=== PATIENT | female | born 1980 | race African-American/Black ===

== ENCOUNTER 2016-09-08 13:13 | Emergency (ER) | payer OTHER ==
[2016-09-08 13:25] VITALS: BP 129/81
--- NOTE | 2016-09-08 14:10 | ER Document Report ---
ED Medical Screen (RME) - General Stated Complaint: BODY ACHES,HOT AND COLD FLASHES Time seen by provider: 14:08 Mode of Arrival: Ambulatory Information source: Patient Notes: 35-year-old female presents to ED for bodyaches and hot and cold flashes eyes going in and out of focus and feeling nauseated and dizzy since yesterday. Last menstrual period was started today. I have greeted and performed a rapid initial assessment of this patient. A comprehensive ED assessment and evaluation of the patient, analysis of test results and completion of medical decision making process will be conducted by an additional ED providers. TRAVEL OUTSIDE OF THE [place] IN LAST 30 DAYS: No - Related Data Allergies/Adverse Reactions: No Known Allergies Allergy (Unverified 01/24/13 23:12) Past Medical History - Past Medical History Cardiac Medical History: Denies: Hx Coronary Artery Disease, Hx Hypertension Pulmonary Medical History: Reports: Hx Bronchitis Denies: Hx Asthma Endocrine Medical History: Denies: Hx Diabetes Mellitus Type 1, Hx Diabetes Mellitus Type 2 Past Surgical History: Reports: Hx Tubal Ligation - Immunizations Immunizations up to date: No Hx Diphtheria, Pertussis, Tetanus Vaccination: No Physical Exam - Vital signs Vitals: Temp Pulse Resp BP Pulse Ox 98.7 F 87 16 129/81 H 99 09/08/16 13:22 09/08/16 13:22 09/08/16 13:22 09/08/16 13:22 09/08/16 13:22 Course - Vital Signs Vital signs: Temp Pulse Resp BP Pulse Ox 98.7 F 87 16 129/81 H 99 09/08/16 13:22 09/08/16 13:22 09/08/16 13:22 09/08/16 13:22 09/08/16 13:22
[2016-09-08 14:43] LABS: ABSOLUTE EOSINOPHILS # (AUTO) 0.3 10^3/uL (0.0-0.6); ABSOLUTE LYMPHOCYTES (AUTO) 2.6 10^3/uL (0.5-4.7); ABSOLUTE MONOCYTES (AUTO) 0.6 10^3/uL (0.1-1.4); ABSOLUTE NEUT (AUTO) 4.8 10^3/uL (1.7-8.2); BASOPHILS % (AUTO) 0.6 % (0-2); EOSINOPHILS % (AUTO) 3.6 % (0-6); HEMATOCRIT 42.8 % (36.0-47.0); HEMOGLOBIN 14.4 g/dL (12.0-15.5); HGB HCT DIFFERENCE 0.4; MEAN CORPUSCULAR HEMOGLOBIN 30.8 pg (27.0-33.4); MEAN CORPUSCULAR HGB CONC 33.7 g/dL (32.0-36.0); MEAN CORPUSCULAR VOLUME 92 fl (80-97); MONOCYTES % (AUTO) 6.8 % (3-13); RED BLOOD COUNT 4.67 10^6/uL (3.72-5.28); RED CELL DISTRIBUTION WIDTH 13.5 % (11.5-14.0); WHITE BLOOD COUNT 8.3 10^3/uL (4.0-10.5)
[2016-09-08 15:02] LABS: ALANINE AMINOTRANSFERASE 23 U/L (9-52); ALBUMIN 3.9 g/dL (3.5-5.0); ALKALINE PHOSPHATASE 72 U/L (38-126); ANION GAP 6 (5-19); ASPARTATE AMINO TRANSFERASE 15 U/L (14-36); BILIRUBIN,TOTAL 0.3 mg/dL (0.2-1.3); BLOOD UREA NITROGEN 10 mg/dL (7-20); CALCIUM 9.8 mg/dL (8.4-10.2); CARBON DIOXIDE 27 mmol/L (22-30); CHLORIDE 106 mmol/L (98-107); CREATININE RESULT 0.83 mg/dL (0.52-1.25); GLUCOSE 82 mg/dL (75-110); POTASSIUM 4.4 mmol/L (3.6-5.0); SODIUM 139.2 mmol/L (137-145); TOTAL PROTEIN 6.7 g/dL (6.3-8.2)
[2016-09-08 15:07] LABS: APPEARANCE,URINE CLEAR; BILIRUBIN,URINE NEGATIVE (NEGATIVE); GLUCOSE, URINE NEGATIVE (NEGATIVE); KETONES,URINE NEGATIVE (NEGATIVE); LEUKOCYTE ESTERASE,URINE TRACE (NEGATIVE); NITRITE,URINE NEGATIVE (NEGATIVE); PROTEIN,URINE NEGATIVE (NEGATIVE); URINE SPECIFIC GRAVITY 1.003; UROBILINOGEN,URINE NEGATIVE mg/dL (<2.0)
--- NOTE | 2016-09-08 16:21 | ER Document Report ---
ED General - General Chief Complaint: Dizziness Stated Complaint: BODY ACHES,HOT AND COLD FLASHES Time seen by provider: 16:17 Mode of Arrival: Ambulatory Information source: Patient Notes: 35-year-old female who complains about 3 day history of nausea nonproductive cough nasal congestion diffuse body aches occasional dizziness with standing. To this examiner she denies focal weakness to any extremity, syncope, visual disturbances, chest pain, abdominal pain, or dysuria. Physical Exam: General: Alert, appears well. HEENT: Normocephalic. Atraumatic. PERRLA. Extraocular movements intact. Discs sharp no papilledema sclerae anicteric tympanic membranes clear canals with moderate cerumen oropharynx clear mucous membranes moist Neck: Supple. Non-tender. No adenopathy no JVD Respiratory: No respiratory distress. Clear and equal breath sounds bilaterally. Cardiovascular: Regular rate and rhythm. Abdominal: Normal Inspection. Soft, non-tender. No distension. Normal Bowel Sounds. Back: Non-tender. No deformity or step off. Good range of motion all extremities without discomfort Neurological: Cranial nerves III-XII grossly intact bilaterally. Strength 5/5 throughout. Sensation intact to light touch. Normal cognition. AAOx4. Normal speech. Cerebellar function intact by finger-nose test bilaterally Psychological: Normal affect. Normal Mood. Skin: Warm. Dry. Normal color. TRAVEL OUTSIDE OF THE [place] IN LAST 30 DAYS: No - Related Data Allergies/Adverse Reactions: No Known Allergies Allergy (Verified 09/08/16 14:11) Past Medical History - General Information source: Patient - Social History Smoking Status: Never Smoker Chew tobacco use (# tins/day): No Family History: CAD, CVA, DM, Hyperlipidemia, Hypertension, Malignancy Patient has suicidal ideation: No Patient has homicidal ideation: No - Past Medical History Cardiac Medical History: Denies: Hx Coronary Artery Disease, Hx Hypertension Pulmonary Medical History: Reports: Hx Bronchitis Denies: Hx Asthma Endocrine Medical History: Denies: Hx Diabetes Mellitus Type 1, Hx Diabetes Mellitus Type 2 Renal/ Medical History: Denies: Hx Peritoneal Dialysis Past Surgical History: Reports: Hx Tubal Ligation - Immunizations Immunizations up to date: No Hx Diphtheria, Pertussis, Tetanus Vaccination: No Hx Pneumococcal Vaccination: 04/02/09 Review of Systems - Review of Systems Constitutional: denies: Chills, Fever EENT: Throat pain. denies: Ear pain Cardiovascular: See HPI. denies: Chest pain Respiratory: See HPI Gastrointestinal: denies: Diarrhea Genitourinary: denies: Burning, Dysuria Musculoskeletal: denies: Back pain Skin: denies: Rash Hematologic/Lymphatic: denies: Swollen glands Neurological/Psychological: denies: Numbness Physical Exam - Vital signs Vitals: Temp Pulse Resp BP Pulse Ox 98.7 F 87 16 129/81 H 99 09/08/16 13:22 09/08/16 13:22 09/08/16 13:22 09/08/16 13:22 09/08/16 13:22 Course - Re-evaluation Re-evalutation: 09/08/16 16:19 Patient 5 white cells in urine but no urinary symptoms and I doubt this represents urinary tract infection. Patient's symptoms consistent with viral syndrome she is counseled to use [id number] regimens for this and will provide with outpatient physician follow-up as she has no local doctor - Vital Signs Vital signs: Temp Pulse Resp BP Pulse Ox 98.7 F 87 16 129/81 H 99 09/08/16 13:22 09/08/16 13:22 09/08/16 13:22 09/08/16 13:22 09/08/16 13:22 - Laboratory Result Diagrams: 09/08/16 14:15 09/08/16 14:15 Laboratory results interpreted by me: 09/08/16 14:20 Urine Blood MODERATE H Ur Leukocyte Esterase TRACE H Discharge - Discharge Clinical Impression: Viral syndrome Condition: Stable Disposition: HOME, SELF-CARE Instructions: Viral Syndrome ([facility]) Forms: Return to Work Referrals: [facility] [Provider Group] - Follow up as needed
== END 2016-09-08 17:00 | disposition home or self-care (01) ==
LOC: ER 13:13
DX: B34.9 Viral infection, unspecified (principal); R11.0 Nausea; R05 Cough; R09.81 Nasal congestion; R42 Dizziness and giddiness; R07.0 Pain in throat
CPT/HCPCS: 36415; 80053; 81001; 84703; 85025; 99284

== ENCOUNTER 2017-10-14 16:33 | Emergency (ER) | payer SELFPAY ==
--- NOTE | 2017-10-14 18:21 | ER Document Report ---
ED General - General Mode of Arrival: Ambulatory Information source: Patient TRAVEL OUTSIDE OF THE [place] IN LAST 30 DAYS: No - General Chief Complaint: Numbness of Arm Stated Complaint: LEFT ARM AND HAND TINGLING Time Seen by Provider: 10/14/17 18:15 Notes: 36 y.o female presents to the ED with numbness and tingling to her LUE. She reports that she was at work and her LT hand started to tingle and progressing up her arm. She states that at first she ignored it because it has been happening intermittently since April last year. She states that when it happens it lasts for about an hour. She denies any pain at onset but admits to numbness. Pt also states that her right hand was feeling as if it was swelling but has since relieved. (TASHA YEN) - Related Data Allergies/Adverse Reactions: No Known Allergies Allergy (Verified 10/14/17 16:35) Past Medical History - General Information source: Patient - Social History Smoking Status: Current Every Day Smoker - 2 packs per week Chew tobacco use (# tins/day): No Smoking Education Provided: Yes Frequency of alcohol use: Rare Drug Abuse: None Lives with: Family Family History: CAD, CVA, DM, Hyperlipidemia, Hypertension, Malignancy Patient has suicidal ideation: No Patient has homicidal ideation: No - Past Medical History Cardiac Medical History: Denies: Hx Coronary Artery Disease, Hx Hypertension Pulmonary Medical History: Reports: Hx Bronchitis Denies: Hx Asthma Endocrine Medical History: Denies: Hx Diabetes Mellitus Type 1, Hx Diabetes Mellitus Type 2 Renal/ Medical History: Denies: Hx Peritoneal Dialysis Past Surgical History: Reports: Hx Tubal Ligation - Immunizations Immunizations up to date: No Hx Diphtheria, Pertussis, Tetanus Vaccination: No Hx Pneumococcal Vaccination: 04/02/09 Review of Systems - Review of Systems Constitutional: No symptoms reported EENT: No symptoms reported Cardiovascular: No symptoms reported Respiratory: No symptoms reported Gastrointestinal: No symptoms reported Genitourinary: No symptoms reported Female Genitourinary: No symptoms reported Musculoskeletal: See HPI, Other - RT hand swelling sensation.. denies: Muscle pain - denies any pain with tingling onset Skin: No symptoms reported Hematologic/Lymphatic: No symptoms reported Neurological/Psychological: See HPI, Numbness - LUE, Tingling - LUE -: Yes All other systems reviewed and negative Physical Exam - Vital signs Vitals: Temp Pulse Resp BP Pulse Ox 98.7 F 96 16 134/81 H 98 10/14/17 16:40 10/14/17 16:40 10/14/17 16:40 10/14/17 16:40 10/14/17 16:40 - Notes Notes: General: Alert, appears well. HEENT: Normocephalic. Atraumatic. PERRL. Extraocular movements intact. Oropharynx clear. Neck: Supple. Non-tender. Respiratory: No respiratory distress. Clear and equal breath sounds bilaterally. Cardiovascular: Regular rate and rhythm. Abdominal: Morbidly obese, soft , non-tender. No distension. Normal Bowel Sounds. Back: Non-tender. No deformity or step off. Extremities: Moves all four extremities. Upper extremities: Normal ROM. LT trapezius muscle very tender to palpation. RT hand unremarkable. Lower extremities: Normal inspection. No edema. Normal ROM. Neurological: Normal cognition. AAOx4. Normal speech. Psychological: Normal affect. Normal Mood. Skin: Warm. Dry. Normal color. (TASHA YEN) - Vital Signs Vital signs: Temp Pulse Resp BP Pulse Ox 98.7 F 96 16 134/81 H 98 10/14/17 16:40 10/14/17 16:40 10/14/17 16:40 10/14/17 16:40 10/14/17 16:40 Discharge - Discharge Clinical Impression: Numbness and tingling in left arm Condition: Stable Disposition: HOME, SELF-CARE Additional Instructions: The intermittent numbness you are experiencing going down the dorsal lateral left arm and forearm to your hand is probably related to chronic tension in your left trapezius muscle as we demonstrated during her physical exam. Try taking Tylenol every 4 hours and Motrin 800mg every 8 hours for the next several days. Try moist heat such as a warm wet towel or a wet towel under heating pad to the left trapezius muscle where you were tender during the exam. Follow-up with a local medical doctor if not improving. RETURN TO THE EMERGENCY ROOM IF ANY NEW OR WORSENING SYMPTOMS. Scribe Attestation: 10/14/17 18:36 I personally performed the services described in the documentation, reviewed and edited the documentation which was dictated to the scribe in my presence, and it accurately records my words and actions. (JERILYN ESTRADA) Scribe Documentation - Scribe Written by Lizeth:: Lizeth Barrientos 10/14/[id number] acting as scribe for :: Rani
[2017-10-14 18:55] VITALS: BP 114/80
== END 2017-10-14 18:54 | disposition home or self-care (01) ==
LOC: ER 16:33
DX: R20.0 Anesthesia of skin (principal); R20.2 Paresthesia of skin; F17.210 Nicotine dependence, cigarettes, uncomplicated; Z98.51 Tubal ligation status
CPT/HCPCS: 99283

== ENCOUNTER 2018-12-12 18:30 | Emergency (ER) | payer SELFPAY ==
[2018-12-12 18:38] VITALS: BP 144/80
[2018-12-12] MEDS ORDERED: IBUPROFEN 600 MG TABLET PO ONE (20:40)
[2018-12-12] MEDS ORDERED: ACETAMINOPHEN 325 MG TABLET PO ONE (20:40)
--- NOTE | 2018-12-12 20:42 | ER Document Report ---
HPI - HPI Time Seen by Provider: 12/12/18 20:30 Pain Level: 3 Context: Patient is a 38-year-old female who presents emerged department with a chief complaint of a sore throat and feeling like she is underwater with right ear pain rating today. Her daughter was diagnosed with strep on Tuesday. She also works in a [employer] with multiple people around. She states that she just generally does not feel well. Denies any past medical history. - EENT EENT: REPORTS: Sore Throat - dghtr has strep - RESPIRATORY Respiratory: DENIES: Trouble Breathing, Coughing - GASTROINTESTINAL Gastrointestinal: DENIES: Abdominal Pain - REPRODUCTIVE Reproductive: DENIES: : - MUSCULOSKELETAL Musculoskeletal: DENIES: Extremity pain - DERM Skin Color: Normal Skin Problems: None Past Medical History - Social History Smoking Status: Never Smoker Chew tobacco use (# tins/day): No Frequency of alcohol use: None Drug Abuse: None Family History: CAD, CVA, DM, Hyperlipidemia, Hypertension, Malignancy Patient has suicidal ideation: No Patient has homicidal ideation: No - Past Medical History Cardiac Medical History: Denies: Hx Coronary Artery Disease, Hx Hypertension Pulmonary Medical History: Reports: Hx Bronchitis Denies: Hx Asthma Endocrine Medical History: Denies: Hx Diabetes Mellitus Type 1, Hx Diabetes Mellitus Type 2 Renal/ Medical History: Denies: Hx Peritoneal Dialysis Past Surgical History: Reports: Hx Tubal Ligation - Immunizations Immunizations up to date: No Hx Diphtheria, Pertussis, Tetanus Vaccination: No Hx Pneumococcal Vaccination: 04/02/09 Vertical Provider Document - CONSTITUTIONAL Agree With Documented VS: Yes Exam Limitations: No Limitations General Appearance: No Apparent Distress - INFECTION CONTROL TRAVEL OUTSIDE OF THE [place] IN LAST 30 DAYS: No - HEENT HEENT: Atraumatic, Normocephalic, PERRLA, Pharyngeal Exudate, Pharyngeal Tenderness, Pharyngeal Erythema. negative: Conjuctival Injection Notes: Cerumen impaction in both ears. - RESPIRATORY Respiratory: Breath Sounds Normal, No Respiratory Distress - CARDIOVASCULAR Cardiovascular: Regular Rate, Regular Rhythm Pulses: Normal: Radial - MUSCULOSKELETAL/EXTREMETIES Musculoskeletal/Extremeties: FROM - NEURO Level of Consciousness: Awake, Alert, Appropriate Motor/Sensory: No Motor Deficit, No Sensory Deficit - DERM Integumentary: Warm, Dry, No Rash Course - Re-evaluation Re-evalutation: 12/12/18 20:42 Due to the patient being in close quarters with her daughter who was diagnosed with strep, she will be started on Augmentin. Unfortunately due to her cerumen, I was unable to visualize her tympanic membrane. The Augmentin will cover a pos sible infection since she is complaining of right ear pain also. She does have tonsillar exudate. She will receive ibuprofen and Tylenol. I do not suspect Uche's angina, peritonsillar abscess, or any other life-threatening etiology at this time. Airway is patent. Follow-up precautions were given. Verbal discharge instructions were given to the patient. They verbalized understanding. They are stable for discharge. - Vital Signs Vital signs: Temp Pulse Resp BP Pulse Ox 98.5 F 110 H 18 144/80 H 97 12/12/18 18:37 12/12/18 18:37 12/12/18 18:37 12/12/18 18:37 12/12/18 18:37 Discharge - Discharge Clinical Impression: Tonsillar exudate Condition: Stable Disposition: HOME, SELF-CARE Additional Instructions: You were seen today in the emergency department for sore throat. You are being treated with antibiotics. Please follow-up with the 2 clinics below as needed. If you have worsening symptoms, please return to the emergency department. You are also being provided eardrops. Please use as needed and as directed for the buildup of earwax in your ears. Prescriptions: Amox Tr/Potassium Clavulanate [Augmentin 875-125 Tablet] 1 tab PO BID 10 Days #20 tablet Carbamide Peroxide [Debrox 6.5 % Otic Drops 15 ml] 10 drop OT ASDIR PRN #1 bottle PRN Reason: Forms: Return to Work
== END 2018-12-12 20:45 | disposition home or self-care (01) ==
LOC: ER 18:30
DX: J02.9 Acute pharyngitis, unspecified (principal); H92.01 Otalgia, right ear; Z98.51 Tubal ligation status
CPT/HCPCS: 87070; 87880; 99283

== ENCOUNTER 2018-12-25 13:43 | Emergency (ER) | payer SELFPAY ==
--- NOTE | 2018-12-25 14:41 | ER Document Report ---
HPI - HPI Patient complains to provider of: clogged ears Time Seen by Provider: 12/25/18 14:37 Onset: Other - tuesday Onset/Duration: Persistent Severity: Severe Pain Level: 4 Context: Patient presents emergency department with reports of clogged ear since Tuesday. 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 Denies other symptoms such as fever vomiting diarrhea. Denies pain. Denies dizziness, does report that the outside of her ear hurts because she has been messing with her ear,trying to get the ears unclogged. Associated Symptoms: None Exacerbated by: Denies Relieved by: Denies Similar symptoms previously: No Recently seen / treated by doctor: No - EENT EENT: REPORTS: Ear Pain - REPRODUCTIVE Reproductive: DENIES: : Past Medical History - General Information source: Patient Last Menstrual Period: 12/16/18 - Social History Smoking Status: Current Every Day Smoker Cigarette use (# per day): Yes Frequency of alcohol use: Rare Drug Abuse: None Occupation: call center Family History: CAD, CVA, DM, Hyperlipidemia, Hypertension, Malignancy Patient has suicidal ideation: No Patient has homicidal ideation: No - Past Medical History Cardiac Medical History: Denies: Hx Coronary Artery Disease, Hx Hypertension Pulmonary Medical History: Reports: Hx Bronchitis Denies: Hx Asthma Endocrine Medical History: Denies: Hx Diabetes Mellitus Type 1, Hx Diabetes Mellitus Type 2 Renal/ Medical History: Denies: Hx Peritoneal Dialysis Past Surgical History: Reports: Hx Tubal Ligation - Immunizations Immunizations up to date: No Hx Diphtheria, Pertussis, Tetanus Vaccination: No Hx Pneumococcal Vaccination: 04/02/09 Vertical Provider Document - CONSTITUTIONAL Agree With Documented VS: Yes Exam Limitations: No Limitations General Appearance: WD/WN, No Apparent Distress - INFECTION CONTROL TRAVEL OUTSIDE OF THE [place] IN LAST 30 DAYS: No - HEENT HEENT: Atraumatic, Normocephalic Notes: Bilateral ears with wax buildup unable to visualize TM. No erythema swelling to outer ear. - NECK Neck: Supple - RESPIRATORY Respiratory: No Respiratory Distress - MUSCULOSKELETAL/EXTREMETIES Musculoskeletal/Extremeties: MICHOACANO ARRIETA - NEURO Level of Consciousness: Awake, Alert, Appropriate Motor/Sensory: No Motor Deficit - DERM Integumentary: Warm, Dry Course - Re-evaluation Re-evalutation: 12/25/18 15:24 Ears irrigated by Eliud GONZALEZ good results. Pt reports she can hear and feels much better, ears are cleaned out some erythema to left TM. Right TM clear Patient instructed to not use Q-tips. Instructed to follow-up with ENT for recheck. She verbalized understanding to all instructions Dictation of this chart was performed using voice recognition software; therefore, there may be some unintended grammatical errors. - Vital Signs Vital signs: Temp Pulse Resp BP Pulse Ox 98.9 F 104 H 16 146/83 H 97 12/25/18 13:56 12/25/18 13:56 12/25/18 13:56 12/25/18 13:56 12/25/18 13:56 Discharge - Discharge Clinical Impression: Clogged ear Condition: Stable Disposition: HOME, SELF-CARE Instructions: ENT Additional Instructions: *You have been evaluated for clogged ears Use [id number] earwax softening agent as indicated *Follow up with a ENT within one week for recheck *Return to ED for worsening condition, changes, needs Forms: Return to Work
[2018-12-25 15:32] VITALS: BP 127/73
== END 2018-12-25 15:30 | disposition home or self-care (01) ==
LOC: ER 13:43
DX: H93.8X3 Other specified disorders of ear, bilateral (principal); F17.210 Nicotine dependence, cigarettes, uncomplicated; Z98.51 Tubal ligation status
CPT/HCPCS: 99282

== ENCOUNTER 2019-06-05 16:10 | Emergency (ER) | payer SELFPAY ==
[2019-06-05] MEDS ORDERED: ASPIRIN 81 MG TABLET, CHEWABLE PO ONE (16:54)
--- NOTE | 2019-06-05 16:54 | ER Document Report ---
ED Medical Screen (RME) - General Chief Complaint: Chest Pain Stated Complaint: CHEST PAIN, DIZZY, SHORT OF BREATH Time Seen by Provider: 06/05/19 16:49 Mode of Arrival: Wheelchair Information source: Patient Notes: 38-year-old female presents to ED for complaint of chest pain since around noon. She states the chest pain is centered to the right and very sharp. She denies any cough or any injury to cause her to have chest pain. States she does not have any cardiac history. Patient does have tenderness to palpation to the right upper chest nowhere else. Lung sounds are clear to auscultation. She is states is a waxing and waning pain when it is really bad it is about a 4 in between is about a 2 I have greeted and performed a rapid initial assessment of this patient. A comprehensive ED assessment and evaluation of the patient, analysis of test results and completion of medical decision making process will be conducted by an additional ED providers. TRAVEL OUTSIDE OF THE [place] IN LAST 30 DAYS: No - Related Data Allergies/Adverse Reactions: No Known Allergies Allergy (Verified 12/25/18 13:44) Past Medical History - Past Medical History Cardiac Medical History: Reports: None Pulmonary Medical History: Reports: Hx Bronchitis EENT Medical History: Reports: None Neurological Medical History: Reports: None Endocrine Medical History: Reports: None Renal/ Medical History: Reports: None Malignancy Medical History: Reports: None GI Medical History: Reports: None Musculoskeltal Medical History: Reports None Skin Medical History: Reports None Psychiatric Medical History: Reports: Hx Anxiety Traumatic Medical History: Reports: None Infectious Medical History: Reports: None Past Surgical History: Reports: Hx Tubal Ligation - Immunizations Immunizations up to date: Yes Hx Diphtheria, Pertussis, Tetanus Vaccination: Yes - 2014 History of Influenza Vaccine for 03/2019 - 08/2019 Season: No Physical Exam - Vital signs Vitals: Temp Pulse Resp BP Pulse Ox 99.1 F 99 16 136/83 H 100 06/05/19 16:25 06/05/19 16:25 06/05/19 16:25 06/05/19 16:25 06/05/19 16:25 Course - Vital Signs Vital signs: Temp Pulse Resp BP Pulse Ox 99.1 F 99 16 136/83 H 100 06/05/19 16:25 06/05/19 16:25 06/05/19 16:25 06/05/19 16:25 06/05/19 16:25
--- NOTE | 2019-06-05 17:44 | RADIOLOGY REPORT (SQ) ---
EXAM DESCRIPTION: CHEST 2 VIEWS COMPLETED DATE/TIME: 06/05/2019 5:23 pm REASON FOR STUDY: chest pain COMPARISON: None. EXAM PARAMETERS: NUMBER OF VIEWS: two views TECHNIQUE: PA and lateral views of the chest were obtained. RADIATION DOSE: NA LIMITATIONS: none FINDINGS: LUNGS AND PLEURA: No consolidation, pleural effusion or pneumothorax. MEDIASTINUM AND HILAR STRUCTURES: No mediastinal or hilar contour abnormality. HEART AND VASCULAR STRUCTURES: The cardiac silhouette and pulmonary vasculature are within normal wilder its. BONES: No acute findings. HARDWARE: None in the chest. OTHER: No other finding. IMPRESSION: No acute cardiopulmonary process. TECHNICAL DOCUMENTATION: JOB ID: [id number] [employer]- All Rights Reserved Reading location - IP/workstation name: [email or web address]
[2019-06-05 18:03] LABS: APPEARANCE,URINE CLOUDY; BILIRUBIN,URINE NEGATIVE (NEGATIVE); COLOR,URINE YELLOW; GLUCOSE, URINE NEGATIVE (NEGATIVE); KETONES,URINE NEGATIVE (NEGATIVE); PROTEIN,URINE NEGATIVE (NEGATIVE); URINE SPECIFIC GRAVITY 1.004; UROBILINOGEN,URINE NEGATIVE mg/dL (<2.0)
[2019-06-05 18:04] LABS: ABSOLUTE EOSINOPHILS # (AUTO) 0.1 10^3/uL (0.0-0.6); ABSOLUTE LYMPHOCYTES (AUTO) 2.5 10^3/uL (0.5-4.7); ABSOLUTE MONOCYTES (AUTO) 0.6 10^3/uL (0.1-1.4); ABSOLUTE NEUT (AUTO) 5.2 10^3/uL (1.7-8.2); BASOPHILS % (AUTO) 0.6 % (0-2); EOSINOPHILS % (AUTO) 1.5 % (0-6); HEMATOCRIT 44.1 % (36.0-47.0); HEMOGLOBIN 15.4 g/dL (12.0-15.5); MEAN CORPUSCULAR HEMOGLOBIN 31.8 pg (27.0-33.4); MEAN CORPUSCULAR HGB CONC 34.8 g/dL (32.0-36.0); MEAN CORPUSCULAR VOLUME 91 fl (80-97); MONOCYTES % (AUTO) 7.3 % (3-13); PLATELET COUNT 220 10^3/uL (150-450); RED BLOOD COUNT 4.83 10^6/uL (3.72-5.28); RED CELL DISTRIBUTION WIDTH 13.9 % (11.5-14.0); SEGMENTED NEUTROPHILS % (AUTO) 61.6 % (42-78); TOTAL CELLS COUNTED % (AUTO) 100 %; WHITE BLOOD COUNT 8.5 10^3/uL (4.0-10.5)
[2019-06-05 18:34] LABS: ALBUMIN 4.4 g/dL (3.5-5.0); ALKALINE PHOSPHATASE 70 U/L (38-126); ANION GAP 12 (5-19); ASPARTATE AMINO TRANSFERASE 18 U/L (14-36); BILIRUBIN,DIRECT 0.2 mg/dL (0.0-0.4); BILIRUBIN,TOTAL 0.5 mg/dL (0.2-1.3); BLOOD UREA NITROGEN 7 mg/dL (7-20); CALCIUM 10.4 mg/dL (8.4-10.2); CARBON DIOXIDE 25 mmol/L (22-30); CHLORIDE 102 mmol/L (98-107); GLUCOSE 85 mg/dL (75-110); POTASSIUM 4.3 mmol/L (3.6-5.0); TOTAL PROTEIN 7.4 g/dL (6.3-8.2)
[2019-06-05 18:41] LABS: NT PRO BNP < 11 pg/mL (<125); TROPONIN I < 0.012 ng/mL
--- NOTE | 2019-06-05 20:41 | ER Document Report ---
ED General - General Chief Complaint: Chest Pain Stated Complaint: CHEST PAIN, DIZZY, SHORT OF BREATH Time Seen by Provider: 06/05/19 16:49 Mode of Arrival: Wheelchair Notes: Patient is a 38-year-old female that comes to the emergency department for chief complaint of sharp right-sided chest pain that she started noticing around noon today. This comes and goes. She states that when it develops she can massage the area over her right chest and it eventually stops. She states it hurts to massage the area as well. She states when the pain is sharp it feels like it is hard to breathe. She denies cough, injury, fever/chills, nausea/vomiting, or radiations of pain. She denies history of the same. She smokes, she denies alcohol or recreational drugs. She states her father of a heart attack. She denies lower extremity swelling, recent travel or surgery. She denies any daily medications or diagnosed medical problems. She states the pain is not currently present unless she presses on the area. TRAVEL OUTSIDE OF THE [place] IN LAST 30 DAYS: No - Related Data Allergies/Adverse Reactions: No Known Allergies Allergy (Verified 12/25/18 13:44) Past Medical History - General Information source: Patient - Social History Smoking Status: Never Smoker Frequency of alcohol use: None Drug Abuse: None Lives with: Family Family History: CAD, CVA, DM, Hyperlipidemia, Hypertension, Malignancy Patient has suicidal ideation: No Patient has homicidal ideation: No - Past Medical History Cardiac Medical History: Reports: None Pulmonary Medical History: Reports: Hx Bronchitis EENT Medical History: Reports: None Neurological Medical History: Reports: None Endocrine Medical History: Reports: None Renal/ Medical History: Reports: None Malignancy Medical History: Reports: None GI Medical History: Reports: None Musculoskeletal Medical History: Reports None Skin Medical History: Reports None Psychiatric Medical History: Reports: Hx Anxiety Traumatic Medical History: Reports: None Infectious Medical History: Reports: None Past Surgical History: Reports: Hx Tubal Ligation - Immunizations Immunizations up to date: Yes Hx Diphtheria, Pertussis, Tetanus Vaccination: Yes - 2014 Hx Pneumococcal Vaccination: 04/02/09 Review of Systems - Review of Systems Constitutional: No symptoms reported EENT: No symptoms reported Cardiovascular: See HPI Respiratory: No symptoms reported Gastrointestinal: No symptoms reported Genitourinary: No symptoms reported Female Genitourinary: No symptoms reported Musculoskeletal: See HPI Skin: No symptoms reported Hematologic/Lymphatic: No symptoms reported Neurological/Psychological: No symptoms reported Physical Exam - Vital signs Vitals: Temp Pulse Resp BP Pulse Ox 99.1 F 99 16 136/83 H 100 06/05/19 16:25 06/05/19 16:25 06/05/19 16:25 06/05/19 16:25 06/05/19 16:25 - Notes Notes: GENERAL: Alert, interacts well. No acute distress. HEAD: Normocephalic, atraumatic. EYES: Pupils equal, round, and reactive to light. Extraocular movements intact. ENT: Oral mucosa moist, tongue midline. Oropharynx unremarkable. Airway patent. NECK: Full range of motion. Supple. Trachea midline. LUNGS: Clear to auscultation bilaterally, no wheezes, rales, or rhonchi. No respiratory distress. Specific and reproducible tenderness along the right pectoral muscle which is worsened with movement of the right arm and shoulder. No erythema, swelling, crepitus. HEART: Regular rate and rhythm. No murmur ABDOMEN: Soft, non-tender. Non-distended. EXTREMITIES: Moves all 4 extremities spontaneously. No edema, normal radial and dorsalis pedis pulses bilaterally. No cyanosis. BACK: no cervical, thoracic, lumbar midline tenderness. No saddle anesthesia, normal distal neurovascular exam. Moves all extremities in full range of motion. NEUROLOGICAL: Alert and oriented x3. Normal speech. Cranial nerves II through XII grossly intact. PSYCH: Normal affect, normal mood. SKIN: Warm, dry, normal turgor. No rashes or lesions noted. Course - Re-evaluation Re-evalutation: Patient has had a completed work-up by the time I was able to evaluate her. CBC, chemistry unremarkable, 2 negative troponins, negative BNP, unremarkable chest x-ray, unremarkable EKG. In addition to this patient has very repro ducible chest wall pain on examination. Very low suspicion of ACS. Heart score is 1 (risk factors). Based on her reproducible symptoms I also have a low suspicion of pulmonary embolism. Discussed details with patient at length. Discussed treatment, expectations, follow-up, and return precautions. Patient states understanding and agreement. Stable at time of discharge. - Vital Signs Vital signs: Temp Pulse Resp BP Pulse Ox 98.7 F 91 16 128/79 H 100 06/05/19 21:41 06/05/19 21:41 06/05/19 21:41 06/05/19 21:41 06/05/19 21:41 - Laboratory Result Diagrams: 06/05/19 17:28 06/05/19 17:28 Laboratory results interpreted by me: 06/05/19 06/05/19 17:23 17:28 Calcium 10.4 H Leukocyte Esterase Rfl LARGE H - EKG Interpretation by Me Additional EKG results interpreted by me: EKG shows borderline tachycardia, sinus rhythm at a rate of 101. QTC of 436, normal axis, no T wave inversions or ST segment changes in consecutive leads. Discharge - Discharge Clinical Impression: Right-sided chest pain, Chest wall pain Condition: Stable Disposition: HOME, SELF-CARE Additional Instructions: Your work-up today is negative for concerning findings in regards to your heart. This appears to be your chest wall that has been strained and you are having muscle spasms of the pectoral muscle. I recommend heat over the area, take the anti-inflammatory as prescribed, take the musculature especially at night to help you rest. Stay hydrated. Symptoms should resolve with time. Follow-up with primary care. Stop smoking. Return for any concerning symptoms including difficulty breathing, passing out, severe worsening pain, fever, or any other concerning symptoms. Prescriptions: Cyclobenzaprine HCl [Flexeril 5 mg Tablet] 1 - 2 tab PO TID PRN #15 tablet PRN Reason: Naproxen 500 mg PO BID PRN #20 tablet PRN Reason: Forms: Smoking Cessation Education, Return to Work
[2019-06-05 21:30] VITALS: BP 128/79
--- NOTE | 2019-06-06 07:44 | EKG REPORT ---
SEVERITY:- OTHERWISE NORMAL ECG - SINUS TACHYCARDIA : Confirmed by: Shmuel Pappas MD 06-Jun-2019 07:44:04
== END 2019-06-05 21:41 | disposition home or self-care (01) ==
LOC: ER 16:10
DX: R07.9 Chest pain, unspecified (principal); R07.89 Other chest pain
CPT/HCPCS: 36415; 71046; 80053; 81001; 83735; 83880; 84484; 84703; 85025; 87086; 93005; 93010; 99285